=== PATIENT | female | born 1975 | race Caucasian/White ===

== ENCOUNTER → 2018-09-05 | Outpatient (CLI) | payer OTHER ==
[~2018-09-05] MED LIST: AMIT50TA PO; AMPH30TA2 PO; GABA-826 PO; HYDR-3622 PO; RANI150C PO
[2018-09-05 12:47] LABS: MICROSCOPIC NOT IND
[2018-09-05 12:50] LABS: CULTURE INDICATED? NO
[2018-09-05 12:51] LABS: MD NO
[2018-09-05 12:52] LABS: BASOPHILS # (AUTO) 0.09 x10^3/uL (0-0.1); BASOPHILS % (AUTO) 1 % (0-1); EOSINOPHILS # (AUTO) 0.25 x10^3/uL (0-0.4); EOSINOPHILS % (AUTO) 3 % (1-7); LYMPHOCYTES # (AUTO) 1.87 x10^3/uL (1-3.4); LYMPHOCYTES % (AUTO) 24 % (22-44); MEAN CORPUSCULAR HEMOGLOBIN 30.5 pg (27.0-34.8); MEAN CORPUSCULAR HGB CONC 33.8 g/dL (32.4-35.8); MEAN CORPUSCULAR VOLUME 90.3 fL (80-100); MEAN PLATELET VOLUME 8.8 fL (7.4-10.4); MONOCYTES # (AUTO) 0.62 x10^3/uL (0.2-0.8); MONOCYTES % (AUTO) 8 % (2-9); NEUTROPHILS # (AUTO) 4.86 x10^3/uL (1.8-6.8); NEUTROPHILS % (AUTO) 63 % (42-75); PLATELET COUNT 296 x10^3/uL (130-400); RED BLOOD COUNT 4.91 x10^6/uL (3.82-5.3); RED CELL DISTRIBUTION WIDTH 13.2 % (9.6-15.2)
[2018-09-05 12:59] LABS: ANION GAP 3 mmol/L (5-15); CALCIUM 8.8 mg/dL (8.5-10.1); CHLORIDE 111 mmol/L (98-107); CREATININE 0.66 mg/dL (0.55-1.02)
== END | disposition home or self-care (01) ==
LOC: STAR 11:23
PROVIDERS: ATTEND Orthopaedic Surgery
DX: M17.12 Unilateral primary osteoarthritis, left knee (principal)
CPT/HCPCS: 36415; 80048; 81003; 85025; 87081; 87147

== ENCOUNTER 2018-09-10 07:00 | Inpatient (IN) | payer OTHER ==
[~2018-09-10] VITALS: Ht 167.6 cm; Wt 95.2 kg
[2018-09-10] MEDS ORDERED: LACTATED RINGERS 1,000 ML IV SCH (07:45)
[2018-09-10 07:54] LABS: HCG UR SG 1.014 (1.003-1.030)
[2018-09-10] MEDS ORDERED: ACETAMINOPHEN 500 MG TABLET PO ONE (08:00)
[2018-09-10] MEDS ORDERED: ONDANSETRON ODT 8 MG PO ONE (08:00)
[2018-09-10] MEDS ORDERED: GABAPENTIN 300 MG CAPSULE PO ONE (08:00)
[2018-09-10] MEDS ORDERED: OxyconTIN ER 20 MG TAB.ER PO ONE (08:00)
[2018-09-10 08:11] VITALS: BP 126/88
[2018-09-10] MEDS ORDERED: TRANEXAMIC ACID 100 MG/ML, 10ML ONE (08:43)
[2018-09-10] MEDS ORDERED: KETOROLAC 60 MG/2 ML ONE (08:43)
[2018-09-10] MEDS ORDERED: EPINEPHRINE 1 MG/ML, 1ML ONE (08:44)
[2018-09-10] MEDS ORDERED: ROPIvacaine/PF 0.2%, 20 ML ONE (08:44)
[2018-09-10] MEDS ORDERED: SODIUM CHLORIDE 0.9% 100 ML ONE (08:44)
[2018-09-10] MEDS ORDERED: FENTANYL PF 250 MCG/5ML ONE (09:09)
[2018-09-10] MEDS ORDERED: MIDAZOLAM 1 MG/ML, 5ML ONE (09:09)
[2018-09-10] MEDS ORDERED: HYDROmorphone 2 MG/ML, 1ML ONE (10:01)
[2018-09-10] MEDS ORDERED: PROPOFOL 10 MG/ML, 20ML ONE (10:13)
[2018-09-10] MEDS ORDERED: CEFAZOLIN 1,000 MG ONE (10:13)
[2018-09-10] MEDS ORDERED: DEXAMETHASONE 4 MG/ML, 1ML ONE (10:13)
[2018-09-10] MEDS: D5%-0.45% NACL 1,000 ML IV SCH ×2 (10:40→16:02)
[2018-09-10] MEDS ORDERED: PROMETHAZINE 12.5 MG SUPP PR PRN ×2 (11:00)
[2018-09-10] MEDS ORDERED: PROMETHAZINE 25 MG/ML, 1ML IM PRN (11:00)
[2018-09-10] MEDS ORDERED: ALBUTEROL/IPRATROPIUM 2.5MG/0.5MG, 3 ML NPPB PRN (11:00)
[2018-09-10] MEDS ORDERED: ONDANSETRON 4 MG TABLET PO PRN (11:00)
[2018-09-10] MEDS ORDERED: DIPHENHYDRAMINE 50 MG CAPSULE PO PRN (11:00)
[2018-09-10] MEDS ORDERED: HYDROmorphone 2 MG/ML, 1ML IVPush PRN ×2 (11:00)
[2018-09-10] MEDS ORDERED: OXYcodone 5 MG/5 ML ORAL.SOL UDC PO PRN (11:00)
[2018-09-10] MEDS ORDERED: MEPERIDINE/PF 25MG/0.5ML IVPush PRN (11:00)
[2018-09-10] MEDS ORDERED: MORPHINE SULFATE 4 MG/ML, 1ML IVPush PRN (11:00)
[2018-09-10] MEDS ORDERED: BISACODYL 10 MG SUPP PR PRN (11:00)
[2018-09-10] MEDS ORDERED: ALUMINUM/MAG/SIMETHICONE 30 ML UDC PO PRN (11:00)
[2018-09-10] MEDS ORDERED: ACETAMINOPHEN 650 MG/20.3 ML UDC PO SCH (11:00)
[2018-09-10] MEDS ORDERED: MIDAZOLAM 1 MG/ML, 2ML IV PRN (11:00)
[2018-09-10] MEDS ORDERED: DIAZEPAM 5 MG/ML, 2ML IVPush PRN (11:00)
[2018-09-10] MEDS ORDERED: ONDANSETRON 2MG/ML, 2ML IV PRN ×2 (11:00)
[2018-09-10] MEDS ORDERED: FENTANYL PF 100 MCG/2ML IV PRN ×2 (11:00)
[2018-09-10] MEDS ORDERED: SCOPOLAMINE PATCH, 1.5MG PATCH.TD72 TD PRN ×2 (11:00→12:00)
[2018-09-10] MEDS ORDERED: SENNA/DOCUSATE TABLET PO PRN (11:00)
[2018-09-10] MEDS ORDERED: MAGNESIUM HYDROXIDE 8%, 30ML UDC PO PRN (11:00)
[2018-09-10] MEDS ORDERED: HYDROmorphone 1 MG/ML, 1ML IV PRN (11:00)
[2018-09-10] MEDS ORDERED: TRANEXAMIC ACID 1,000 MG in SODIUM CHLORIDE 0.9% 100 ML IVPB ONE (11:15)
[2018-09-10] MEDS ORDERED: ONDANSETRON 2MG/ML, 2ML ONE (11:22)
[2018-09-10] MEDS ORDERED: SCOPOLAMINE PATCH, 1.5MG PATCH.TD72 TD ONE (11:50)
[2018-09-10] MEDS ORDERED: EPHEDRINE 50 MG/ML, 1ML ONE (11:50)
[2018-09-10] MEDS ORDERED: EPHEDRINE 50 MG/ML, 1ML IM PRN (12:00)
[2018-09-10 12:30] VITALS: BP 117/71
[2018-09-10 13:39] VITALS: BP 117/73
[2018-09-10] MEDS: TAMSULOSIN 0.4 MG CAP.ER.24H PO SCH (13:57)
[2018-09-10] MEDS: OXYcodone IR 5MG TABLET PO PRN ×3 (13:57→21:44)
[2018-09-10] MEDS: CEFAZOLIN PMX 2GM/50ML 50 ML IVPB SCH (16:01)
[2018-09-10] MEDS: KETOROLAC 30 MG/1 ML IV SCH ×2 (16:02→21:45)
[2018-09-10] MEDS: ACETAMINOPHEN 500 MG TABLET PO SCH (16:02)
[2018-09-10] MEDS: ASPIRIN 81 MG TABLET EC PO SCH (17:58)
[2018-09-10 20:00] VITALS: BP 107/62
[2018-09-10] MEDS ORDERED: AMITRIPTYLINE 50 MG TABLET PO SCH (21:00)
[2018-09-10] MEDS: DOCUSATE 100 MG CAPSULE PO SCH (21:44)
[2018-09-10] MEDS: DIAZEPAM 5 MG TABLET PO PRN (21:49)
[2018-09-10 23:52] VITALS: BP 107/71
[2018-09-11] MEDS: CEFAZOLIN PMX 2GM/50ML 50 ML IVPB SCH (00:57)
[2018-09-11] MEDS: D5%-0.45% NACL 1,000 ML IV SCH ×2 (00:57→10:40)
[2018-09-11] MEDS: ACETAMINOPHEN 500 MG TABLET PO SCH ×2 (00:58→08:19)
[2018-09-11] MEDS: OXYcodone IR 5MG TABLET PO PRN ×3 (02:13→11:08)
[2018-09-11] MEDS: DIAZEPAM 5 MG TABLET PO PRN (02:15)
[2018-09-11] MEDS: KETOROLAC 30 MG/1 ML IV SCH ×2 (03:14→08:20)
[2018-09-11 04:00] VITALS: BP 95/56
[2018-09-11] MEDS ORDERED: DEXAMETHASONE 4 MG/ML, 1ML IVPush SCH (06:00)
[2018-09-11] MEDS: ASPIRIN 81 MG TABLET EC PO SCH (06:36)
[2018-09-11 07:38] VITALS: BP 113/66
[2018-09-11] MEDS: DOCUSATE 100 MG CAPSULE PO SCH (08:20)
[2018-09-11] MEDS: TAMSULOSIN 0.4 MG CAP.ER.24H PO SCH (08:20)
[2018-09-11] MEDS ORDERED: MULTIVITAMINS/MINERALS TABLET PO SCH (09:00)
[2018-09-11] MEDS ORDERED: OXYC5TAB3 PO (11:25)
[2018-09-11] MEDS ORDERED: ASPI-515 PO (11:26)
== END 2018-09-11 11:35 | disposition home or self-care (01) | DRG 470 ==
LOC: OUT 07:00 → ORIP 10:40 → 4NOR 12:21 → DCLOUNGE 09-11 11:22
PROVIDERS: ADMIT Orthopaedic Surgery; ATTEND Orthopaedic Surgery
PROC: 3E0T3BZ Introduction of Anesthetic Agent into Peripheral Nerves and Plexi, Percutaneous Approach (ICD-10-PCS; 2018-09-10)
PROC: 0SRD0J9 Replacement of Left Knee Joint with Synthetic Substitute, Cemented, Open Approach (ICD-10-PCS; principal; 2018-09-10 09:15)
DX: M17.12 Unilateral primary osteoarthritis, left knee (principal); F90.9 Attention-deficit hyperactivity disorder, unspecified type; Z96.651 Presence of right artificial knee joint; K21.9 Gastro-esophageal reflux disease without esophagitis; G89.29 Other chronic pain; Z87.891 Personal history of nicotine dependence; Z88.8 Allergy status to other drugs, medicaments and biological substances
CPT/HCPCS: 36415; 81025; 85014; 85018; C1713; G0378; J0171; J0690; J1100; J1170; J1885; J2250; J2405; J2704; J2795; J3010; Q0162; C1776; J7120